=== PATIENT | female | born 1985 ===

== ENCOUNTER 2022-05-28 11:14 | Outpatient (CLI) | payer OTHER, SELFPAY ==
[2022-05-28 14:19] LABS: Chloride* 103 mmol/L (96-114); Potassium* 4.4 mmol/L (3.6-5.1); Sodium* 140 mmol/L (135-149)
[2022-05-28 14:21] LABS: Cholesterol* 203 mg/dL (90-199); Creatinine* 0.6 mg/dL (0.5-1.5); Estimated Glomerular Filt Rate 118 ml/min
[2022-05-28 14:22] LABS: Blood Urea Nitrogen* 9 mg/dL (5-24); Carbon Dioxide* 25 mmol/L (20-32); Glucose* 78 mg/dL (60-115); Triglycerides* 173 mg/dL (40-149)
[2022-05-28 14:23] LABS: Calcium* 9.3 mg/dL (8.4-10.6); HDL Cholesterol* 41 mg/dL (>=50); LDL Cholesterol Calculated 127 mg/dL (<100)
== END 2022-05-28 11:15 | disposition home or self-care (01) ==
PROVIDERS: PCP Emergency Medicine; Visit Provider Emergency Medicine
DX: E78.5 Hyperlipidemia, unspecified (principal); E03.9 Hypothyroidism, unspecified; Z13.1 Encounter for screening for diabetes mellitus
CPT/HCPCS: 80048; 80061; 84443

== ENCOUNTER 2022-11-08 09:41 | Outpatient (CLI) | payer OTHER, SELFPAY | END 2022-11-08 09:42 | disposition home or self-care (01) | LOC: NFLDREF 21:19 | PROVIDERS: PCP Emergency Medicine; Referring Provider Emergency Medicine; Visit Provider Emergency Medicine | DX: K76.0 Fatty (change of) liver, not elsewhere classified (principal) | CPT/HCPCS: 84443 ==

== ENCOUNTER 2023-05-13 09:35 | Outpatient (CLI) | payer OTHER, SELFPAY | END 2023-05-13 09:36 | disposition home or self-care (01) | LOC: NFLDREF 05-17 22:41 | PROVIDERS: PCP Emergency Medicine; Referring Provider Emergency Medicine; Visit Provider Emergency Medicine | DX: Z00.00 Encounter for general adult medical examination without abnormal findings (principal); E78.5 Hyperlipidemia, unspecified; E03.9 Hypothyroidism, unspecified | CPT/HCPCS: 80048; 80061; 84443 ==

== ENCOUNTER 2024-05-18 09:04 | Outpatient (CLI) | payer OTHER, SELFPAY | END 2024-05-18 09:05 | disposition home or self-care (01) | LOC: NFLDREF 05-22 14:01 | PROVIDERS: PCP Emergency Medicine; Referring Provider Emergency Medicine; Visit Provider Emergency Medicine | DX: E78.2 Mixed hyperlipidemia (principal); E03.8 Other specified hypothyroidism; E06.3 Autoimmune thyroiditis; Z13.21 Encounter for screening for nutritional disorder | CPT/HCPCS: 80048; 80061; 82306; 82607; 84443 ==

== ENCOUNTER 2024-05-22 13:12 | Outpatient (CLI) | payer OTHER, SELFPAY | END 2024-05-22 13:13 | disposition home or self-care (01) | PROVIDERS: PCP Emergency Medicine; Visit Provider Emergency Medicine | DX: D64.9 Anemia, unspecified (principal) | CPT/HCPCS: 82607; 82728; 84443; 86231; 86258; 86364 ==

== ENCOUNTER 2024-08-20 09:14 | Outpatient (CLI) | payer OTHER, SELFPAY | END 2024-08-20 09:15 | disposition home or self-care (01) | LOC: NFLDREF 08-22 01:18 | PROVIDERS: PCP Emergency Medicine; Referring Provider Emergency Medicine; Visit Provider Emergency Medicine | DX: E03.8 Other specified hypothyroidism (principal); E06.3 Autoimmune thyroiditis | CPT/HCPCS: 84443 ==